=== PATIENT | female | born 1985 | race Caucasian/White ===

== ENCOUNTER 2024-01-01 15:13 | Outpatient (AMB) | payer BC, SELFPAY ==
--- NOTE | 2024-01-01 15:19 | A.OFFPC_ITS ---
Vital Signs 01/01/24 15:23 Height 5 ft 4.37 in Weight 217 lb BMI 36.8 BP 102/50 L Blood Pressure Location Rt brachial Position Sitting Respiration 14 Pulse 84 Pulse Source Pulse Oximeter Temp 98.8 F Temp Source Temporal Artery Scan Pulse Oximetry (%) 99 Oxygen Delivery Method Room Air Intake Visit Reasons: establish Care Intake Note: New patient visit Ophthalmic Surgeon Required: No Patient : Yes Allergies amoxicillin Allergy (Severe, Verified 01/01/24 15:34) Hives Medication List - Last Reconciled 01/01/24 by ISABELLE Velázquez aspirin 81 mg PO DAILY -jvlu fum-folic ac-om3 28-800-440 mg-mcg-mg (One Daily ) pkgs PO Tobacco use date assessed: 01/01/24 Dental Screening Dental Screen Date: 01/01/24 Did you have a dental visit in the last 12 months?: Yes Did you have a dental problem in the last 6 months where you did not have access to dental care?: No Was dental information given to patient?: Patient has dentist HPI HPI Comments History of Present Illness Details 38 y/o F with mild intermittent asthma, 27 weeks with 1st baby (girl) No surgical hx. 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 Reports no complications. Feeling quite well. Did have constipation but this is now resolved. Due date is 03/28/2024. 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 1. Little interest or pleasure in doing things: not at all 2. Feeling down, depressed, or hopeless: not at all 3. Trouble falling or staying asleep, or sleeping too much: not at all 4. Feeling tired or having little energy: not at all 5. Poor appetite or overeating: not at all 6. Feeling bad about yourself - or that you are a failure or have let yourself or your family down: not at all 7. Trouble concentrating on things, such as reading the newspaper or watching television: not at all 8. Moving or speaking so slowly that other people could have noticed. Or the opposite - being so fidgety or restless that you have been moving around a lot more than usual: not at all 9. Thoughts that you would be better off or of hurting yourself in some way: not at all Total score: 0 Depression Screening Interpretation: Negative Depression Screening Done: Yes [id number] - PHQ-9 Billing: Yes Source: Developed by Drs. Facundo Bazzi, Malu Byers, Golden Vásquez and colleagues, with an educational cristina from [employer]. Thrive Questionnaire Date Thrive assessed: 01/01/24 I am a: Patient What is your living situation today?: I have a steady place to live Within the past 12 months, did the food you bought not last and you didn't have the money to get more?: Never true Within the past 12 months, did you worry whether your food would run out before you got money to buy more?: Never true Do you have trouble paying for medicines?: No Do you have trouble getting transportation to medical appointments?: No Do you have trouble paying your heating and electricity bill?: No Do you have trouble taking care of your child, family member or friend?: No Do you have trouble with day-to-day activities such as bathing, preparing meals, shopping, managing finances, etc.?: No Are you currently unemployed and looking for a job?: No Are you interested in more education?: No Please select the resources that you would like help with: None Currently or been in a relationship where the following occur: no concerns reported THRIVE Score: 0 AUDIT C Alcohol Use Questionnaire (AUDIT-C) 1. How often do you have a drink containing alcohol?: Never 3. How often do you have six or more drinks on one occasion?: Never Total Score: 0 Score Reviewed/Action Taken: Yes ZARI-7 AMB Questionnaire ZARI-7 Date ZARI - 7 assessed: 01/01/24 Feeling nervous, anxious, or on edge: 0 = Not at all Not being able to stop or control worryin = Not at all Worrying too much about different things: 0 = Not at all Trouble relaxin = Not at all Being so restless that it is hard to sit still: 0 = Not at all Becoming easily annoyed or irritable: 0 = Not at all Feeling afraid as if something awful might happen: 0 = Not at all Total ZARI-7 score (0-4 normal; 5-9 mild; 10-14 moderate; 15-21 severe): 0 Source: Developed by Drs. Facundo Bazzi, Malu Byers, Golden Vásquez and colleagues, with an educational cristina from [employer]. ZARI-7 Assessment Billing ZARI-7 Assessment Tool: ZARI-7 Assessment 86845 ACT Questionnaire In the past 4 weeks, how much of the time did your asthma keep you from getting as much done at work, school or at home?: None of the time During the past 4 weeks, how often have you had shortness of breath?: 1-2 times a week (Once in the past 4 weeks) During the past 4 weeks, how often did your asthma symptoms wake you up at night or earlier than usual in the morning?: Not at all During the past 4 weeks, how often have you had to use your rescue inhaler or nebulizer medication?: Not at all How would you rate your asthma control during the past 4 weeks?: Somewhat co ntrolled ACT Interpretation: Positive Score: 22 Review of Systems Const Details: Constitutional: Denies fever. Skin: Denies rash. Eye: Denies eye pain. ENMT: Denies sore throat and nasal congestion. Respiratory: Denies shortness of breath and cough. Gastrointestinal: Denies nausea, vomiting or abdominal pain. Cardiovascular: Denies chest pain and syncope. Genitourinary: Denies dysuria. Musculoskeletal: Denies back pain and extremity pain. Neurologic: Denies headaches, confusion, and weakness. Psychiatric: Denies suicidal thoughts and substance abuse. Allergy/ Immunologic: Denies impaired immunity. Physical exam (Primary Care) Vital Signs: Last Vital Signs Temp 98.8 F 01/01/24 15:23 Pulse 84 01/01/24 15:23 Resp 14 01/01/24 15:23 BP 102/50 L 01/01/24 15:23 Pulse Ox 99 01/01/24 15:23 Oxygen Delivery Method Room Air 01/01/24 15:23 BMI result Body Mass Index 36.8 Tobacco/Smoking Status: Tobacco use Status Tobacco use date assessed 01/01/24 01/01/24 15:26 Patient Tobacco Use Status Never used Tobacco 01/01/24 15:34 e-Cigarette/Vaping Use Never Used 01/01/24 15:27 PHQ-9: PHQ-9 Score PHQ-9: Total score 0 01/01/24 15:34 Depression Screening Interpretation: Negative Thrive Assessment: Date of Thrive Assessment Date Thrive assessed 01/01/24 01/01/24 15:32 Currently or been in a relationship where the following occur: no concerns reported Const Other: General: Well developed, well nourished, in no acute distress. Appears stated age. Head: Normocephalic, atraumatic. Eyes: Pupils are equal, round and reactive to light and accommodation. Conjunctivae are clear. Vision grossly normal. Ears: TMs clear AU, EACS WNL Nose: Patent, without discharge. Mouth: There are no ulcers or lesions noted. No inflammation, no post nasal drip, no plaques nor exudates. Neck: Supple, no adenopathy or thyromegaly. Lungs: Clear to auscultation bilaterally. No rales, rhonchi or wheeze noted. Good air flow in all lechuga. Heart: Regular rate and rhythm. No murmurs, click, rubs or gallops are noted. Abdomen: Bowel sounds present in all quadrants. The abdomen is soft, nontender, with no masses or organomegaly noted. No hernias are noted. Gravid abdomen Musculoskeletal: Joints are nontender, without swelling, redness, or effusions. Range of motion is observed to be normal. Pulses: Peripheral pulses are equal and palpable bilaterally. Extremities: No clubbing, cyanosis nor edema is noted. Neurologic: Gait and station normal. Cranial Nerves 2-12 intact. Motor strength grossly symmetrical and intact. No sensory loss. Balance normal. Skin: No rashes, ulcers, or lesions noted. Turgor is good. Skin color is good. Hair and nails are without abnormalities. Psych: Normal eye contact, affect and mood appropriate, and normal interactions. Patient is alert and appropriate to context. Assessment and Plan Assessment & Plan (1) Encounter for general adult medical examination without abnormal findings: Code(s): Z00.00 - Encounter for general adult medical examination without abnormal findings (2) : Code(s): Z34.90 - Encounter for supervision of normal , unspecified, unspecified trimester Qualifiers: Weeks of gestation: 27 weeks Qualified Code(s): Z3A.27 - 27 weeks gestation of (3) Mild intermittent asthma in adult without complication: Comment: controlled w/ maintenance inhalers Code(s): J45.20 - Mild intermittent asthma, uncomplicated Patient Instructions: Return to office in 1 year for complete physical exam. Sooner if you develop any complications. Health screenings for women You should visit your health care provider from time to time, even if you are healthy. The purpose of these visits is to: Screen for medical issues Assess your risk for future medical problems Encourage a healthy lifestyle Update vaccinations and other preventive care services Help you get to know your provider in case of an illness Information Even if you feel fine, you should still see your provider for regular checkups. These visits can help you avoid problems in the future. For example, the only way to find out if you have high blood pressure is to have it checked regularly. High blood sugar and high cholesterol levels also may not have any symptoms in the early stages. A simple blood test can check for these conditions. There are specific times when you should see your provider or receive specific health screenings. The [place] Preventive Services Task Force publishes a list of recommended screenings. Below are screening guidelines for women ages 18 to 39. BLOOD PRESSURE SCREENING Your blood pressure should be checked at least once every 3 to 5 years if: Your blood pressure is in the normal range (top number less than 120 mm Hg and bottom number less than 80 mm Hg) You don't have risk factors for high blood pressure Ask your provider if you need your blood pressure checked more often if: The top number is 120 to 129 mm Hg or the bottom number is 70 to 79 mm Hg You have diabetes, heart disease, kidney problems, are overweight, or have certain other health conditions You have a first-degree relative with high blood pressure You are Black You had high blood pressure during a If the top number is 130 mm Hg or greater or the bottom number is 80 mm Hg or greater, this is considered stage 1 hypertension. Schedule an appointment with your provider to learn how you can reduce your blood pressure. Watch for blood pressure screenings in your area. Ask your provider if you can stop in to have your blood pressure checked. BREAST CANCER SCREENING Experts do not agree about the benefits of breast self-exams in finding breast cancer or saving lives. Talk to your provider about what is best for you. A screening mammogram is not recommended for most women under age 40. Your provider may discuss and recommend mammograms, MRI scans, or ultrasounds if you have an increased risk for breast cancer, such as: A mother or sister who had breast cancer at a young age (most often starting screening earlier than the age the close relative was diagnosed) You carry a high-risk genetic marker CERVICAL CANCER SCREENING Cervical cancer screening should start at age 21 years unless your provider advises otherwise. After the first test: Women ages 21 through 29 should have a Pap test every 3 years. Exoprts do not agree on whether HPV testing is recommended for this age group. Women ages 30 through 65 should be screened with either a Pap test every 3 years or the HPV test every 5 years or both tests every 5 years (called cotesting ). Women who have been treated for precancer (cervical dysplasia) should continue to have Pap tests for 20 years after treatment or until age 65, whichever is longer. If you have had your uterus and cervix removed (total hysterectomy), and you have not been diagnosed with cervical cancer or precancer (high grade cervical neoplasia), you do not need cervical cancer screening. CHOLESTEROL SCREENING Cholesterol screening should begin at: Age 45 for women with no known risk factors for coronary heart disease Age 20 for women with known risk factors for coronary heart disease Repeat cholesterol screening should take place: Every 5 years for women with normal cholesterol levels More often if changes occur in lifestyle (including weight gain and diet) More often if you have diabetes, heart disease, kidney problems, or certain other conditions DIABETES SCREENING You should be screened for diabetes starting at age 35 and then repeated every 3 years if you have no risk factors for diabetes. Screening may need to start earlier and be repeated more often if you have other risk factors for diabetes, such as: You have a first degree relative with diabetes. You are overweight or have obesity. You have high blood pressure, prediabetes, or a history of heart disease. Screening for diabetes should be done if you are planning to become and you are overweight and have other risk factors such as high blood pressure. DENTAL EXAM Go to the dentist once or twice every year for an exam and cleaning. Your dentist will evaluate if you need more frequent visits. EYE EXAM Have an eye exam every 5 to 10 years before age 40. If you have vision problems, have an eye exam every 2 years or more often if recommended by your provider. You should have an eye exam that includes an examination of your retina (back of your eye) at least every year if you have diabetes. IMMUNIZATIONS Commonly needed vaccines include: Flu shot: get one every year. COVID-19 vaccine: ask your provider what is best for you. Tetanus-diphtheria and acellular pertussis (Tdap) vaccine: have one at or after age 19 as one of your tetanus-diphtheria vaccines if you did not receive it as an adolescent. Tetanus-diphtheria: have a booster (or Tdap) every 10 years. Varicella vaccine: receive 2 doses if you never had chickenpox or the varicella vaccine. Hepatitis B vaccine: receive 2, 3, or 4 doses, depending on your exact circumstances. Measles, mumps, and rubella (MMR) vaccine: receive 1 to 2 doses if you are not already immune to MMR. Your provider can tell you if you are immune. Ask your provider about the human papillomavirus (HPV) vaccine if: You have not received the HPV vaccine in the past You have not completed the full vaccine series (you should catch up on this shot) Ask your provider if you should receive other immunizations if you have certain health problems that increase your risk for some diseases such as pneumonia. INFECTIOUS DISEASE SCREENING Women who are sexually active should be screened for chlamydia and gonorrhea up until age 25. Women 25 years and older should be screened for chlamydia and gonorrhea if at high risk. Screening for hepatitis C: All adults ages 18 to 79 should get a one-time test for hepatitis C. people should be screened at every . Screening for human immunodeficiency virus (HIV): All people ages 15 to 65 should get a one-time test for HIV. Depending on your lifestyle and medical history, you may also need to be screened for infections such as syphilis and HIV, as well as other infections. PHYSICAL EXAM All adults should visit their provider from time to time, even if they are healthy. The purpose of these visits is to: Screen for disease Assess your risk of future medical problems Encourage a healthy lifestyle Update your vaccinations and other preventive care services Maintain a relationship with a provider in case of an illness Your height, weight, and BMI should be checked at every exam. During your exam, your provider may ask you about: Depression and anxiety Diet and exercise Alcohol and tobacco use Safety issues, such as using seat belts, smoke detectors, and intimate partner violence Your medicines and risk for interactions SKIN SELF-EXAM Your provider may check your skin for signs of skin cancer, especially if you're at high risk, such as if you: Have had skin cancer before Have close relatives with skin cancer Have a weakened immune system OTHER SCREENING Talk with your provider about colon cancer screening if you have a strong family history of colon cancer or polyps, or if you have had inflammatory bowel disease or polyps yourself. Routine bone density screening of women under 40 is not recommended. Coding Level of Care Code New Pt Prev Care 18-39yr(32945 Diagnoses Encounter for general adult medical examination without abnormal findings Z00.00 27 weeks gestation of Z3A.27 Weeks of gestation: 27 weeks Mild intermittent asthma in adult without complication J45.20 Additional Codes ZARI-7 Assessment Billing - ZARI-7 Assessment Tool: ZARI-7 Assessment 28631 ([id number])
[2024-01-01 15:23] VITALS: BP 102/50; PULSE 84; RESP 14; TEMP 37.1; O2SAT 99; BMI 36.8
== END 2024-01-01 15:49 | disposition home or self-care (01) ==
PROVIDERS: PCP Physician Assistant; Visit Provider Nurse Practitioner Family
DX: Z00.00 Encounter for general adult medical examination without abnormal findings (principal); Z3A.27 27 weeks gestation of pregnancy; J45.20 Mild intermittent asthma, uncomplicated
CPT/HCPCS: 99385

== ENCOUNTER 2024-01-08 08:00 | Outpatient (AMB) | payer BC, SELFPAY ==
--- NOTE | 2024-01-08 08:05 | MHC.OFFWIV ---
Intake Vital Signs 01/08/24 08:11 Height 5 ft 4.37 in Weight 218 lb 6 oz BMI 37.1 BP 134/62 Blood Pressure Location Rt brachial Position Sitting Pulse 84 Pulse Source Pulse Oximeter Temp 98.5 F Temp Source Oral Pulse Oximetry (%) 98 Oxygen Delivery Method Room Air Intake Visit Reasons: Cold/ Flu symptoms Intake Note: Sore throat, body aches, sinus and ear pressure. Patient Tobacco Use Status: Never used Tobacco Allergies amoxicillin Allergy (Severe, Verified 01/08/24 08:16) Hives Medication List - Last Reconciled 01/08/24 by ISABELLE Velázquez aspirin 81 mg PO DAILY [id number] fum-folic ac-om3 28-800-440 mg-mcg-mg (One Daily ) pkgs PO Do you need a note to return to daycare/school/sports/work: Yes Return to daycare/school/sports/work/other note: work HPI HPI Comments History of Present Illness Details 38 y/o F with mild intermittent asthma, currently Here today for acute URI sx: Sx started yesterday while on flight home Sudden onset of sore throat Then this AM around 12 awoke w/ firerey sore throat, sinus pain, painful swallowing, body aches, bilat ears hurt, + sinus drainage , + cough denies fever no known sick exposures No at home treatments PFSH Medical History (Updated 01/08/24 @ 10:21 by ISABELLE Velázquez) Asthma Family History (Updated 01/01/24 @ 15:43 by Effie Agee CMA) Father Liver cancer Paternal Grandfather HTN (hypertension) Paternal Grandfather Hypercholesteremia Social History (Updated 01/01/24 @ 15:27 by Effie Agee CMA) Housing: House Patient Tobacco Use Status: Never used Tobacco e-Cigarette/Vaping Use: Never Used service: No Current occupational status: employed 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 Current occupational exposures/hazards: No Cognitive needs: No Hearing needs: No Vision needs: Yes Review of Systems Const All systems reviewed & are unremarkable except as noted in HPI and below Physical Exam Vital Signs: Last Vital Signs Temp 98.5 F 01/08/24 08:11 Pulse 84 01/08/24 08:11 BP 134/62 01/08/24 08:11 Pulse Ox 98 06/10/24 08:11 Oxygen Delivery Method Room Air 01/08/24 08:11 BMI result Body Mass Index 37.1 Const Other: Awake alert NAD Sclera and conjunctiva clear bilat Nares scant drainage bilat L>R, turbinates within normal limits, Left frontal sinus tenderness with palpation bilat TM intact and clear bilat MMM, pharynx mild erythema, no exudate, managing secretions RRR LS CTAB Results AMB Rapid Strep AMB Rapid Strep Negative Last Edit by KWADWO Velázquez- on 01/08/24 10:26 Assessment & Plan Assessment & Plan (1) Acute upper respiratory infection, unspecified: Code(s): J06.9 - Acute upper respiratory infection, unspecified Plan: . This note is constructed using voice recognition software. While every effort has been made to ensure accuracy in information technology security analyst, still errors may have been included Sometimes, these errors may affect the content or meaning of the given sentence . Total time spent caring for the patient today was 30 minutes. This includes time spent before the visit reviewing the chart, time spent during the visit, and time spent after the visit on documentation Orders: Orders AMB Rapid Strep Screen Today Z13.9 - Encounter for screening, unspecified Patient Instructions: Negative rapid strep today. Advised the patient that this may be a false negative given the onset of symptoms was yesterday. Offered and declined a viral swab. [place] decision-making for a watch and wait approach. Should her symptoms worsen recommend a follow up. Otherwise supportive care to include Tylenol, proper hydration and rest. Out of work note given with return on Monday if feeling better. Coding Level of Care Code Est Pt Level 4 (41889) Diagnoses Acute upper respiratory infection, unspecified J06.9
[2024-01-08 08:11] VITALS: BP 134/62; PULSE 84; TEMP 36.9; O2SAT 98; BMI 37.1
== END 2024-01-08 09:00 | disposition home or self-care (01) ==
PROVIDERS: PCP Nurse Practitioner Family; Visit Provider Nurse Practitioner Family
DX: J02.9 Acute pharyngitis, unspecified (principal); J06.9 Acute upper respiratory infection, unspecified
CPT/HCPCS: 87880; 99214

== ENCOUNTER 2024-06-21 11:26 | Outpatient (AMB) | payer BC, SELFPAY ==
--- NOTE | 2024-06-21 11:31 | MHC.PC.OV ---
Vital Signs 06/21/24 11:34 Height 5 ft 4.37 in Weight 218 lb 8 oz BMI 37.1 BP 94/66 Blood Pressure Location Rt brachial Position Sitting Pulse 80 Pulse Source Pulse Oximeter Pulse Oximetry (%) 97 Oxygen Delivery Method Room Air Intake Visit Reasons: Intake Note: Three months post Authorization Representative Required: No Allergies amoxicillin Allergy (Severe, Verified 06/21/24 12:00) Hives Medication List - Last Reconciled 06/21/24 by Marce Rodriguez [facility]- COVID-19 antigen test (COVID-19 At-Home Test kit) As directed evening primrose oil mg PO -hmtq fum-folic ac-om3 28-800-440 mg-mcg-mg (One Daily ) pkgs PO [torbangun ,] Tobacco use date assessed: 01/01/24 Dental Screening Dental Screen Date: 01/01/24 HPI HPI Comments History of Present Illness Details The patient is a 38-year-old female presenting with anxiety and difficulties with . She delivered her child vaginally on March 22, after a prolonged labor of approximately 27 hours, requiring augmented prolactin levels. During the first two to three weeks , the patient experienced significant emotional distress, which gradually improved. However, she reports being easily agitated and fatigued. Despite receiving 7-8 hours of sleep at night, the patient feels excessively tired. Her agitation has been impacting her relationship with her . At her six-week visit, she reported feeling well and ceased follow-up with her drafting supervisor until her annual visit. She also notes overeating, which she attributes to nervousness. The patient feels confined to her house due to activities related to infant care such as pumping and feeding. She expresses concerns about insufficient milk production despite consulting a plant technical specialist and attempting various interventions, including supplements and diet changes to increase . The patient mentions experiencing intermittent feelings of inadequacy and worthlessness but denies any suicidal ideation or thoughts of harming her . She has a support system consisting of her and mother. She has a history of adverse reactions to SSRIs, including Lexapro and Zoloft, which she ceased due to intolerable side effects. Recently, she started seeing a therapist with whom she has an upcoming appointment. The patient is amenable to undergoing blood work to rule out underlying conditions possibly contributing to her symptoms. 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 - Feels confined to home due to care responsibilities and lacks local family support. - Expresses feelings of social isolation and distress due to inability to engage socially outside the home. - Describes a constrained diet, characterized by quick and convenient meals rather than balanced nutrition. - Engages with online support groups for new mothers. Physical Exam General: Awake, alert. No apparent distress Eyes: Sclera and conjunctiva clear bilaterally Cardiovascular: Regular rate and rhythm Respiratory: Clear to auscultation bilaterally Psych: Mood flat, good eye contact, future oriented Plan - Anxiety: Continue current support through therapy. Discussed potential for medication upon patient agreement if anxiety becomes more severe or unmanageable. Obtain laboratory tests to rule out underlying medical conditions contributing to anxiety. - Difficulties with : Follow up with client relationship consultant and reevaluate current strategies. Obtain hormone levels and assess for nutritional deficits that might impact . Continue supplementing with formula as needed. Patient was informed and verbally consented to the use of an ambient scribe for clinic note documentation during this visit. Discussion Notes I discussed with the patient the potential causes and management strategies for anxiety. We considered her previous adverse reactions to SSRIs, emphasizing that medication remains an option if needed, and acknowledged the seriousness of anxiety that can manifest beyond depression into isolation. Follow-up includes lab work to rule out any underlying conditions and scheduled closely monitored visits to reassess her condition. For difficulties, I reiterated the importance of consulting a plant technical specialist. We talked about the timing and limitations of hormonal assessments but agreed these could inform further interventions. I emphasized that supplementing with formula is acceptable, reassuring her about its adequacy for growth and development. I advised the patient to continue using her support systems and to notify me of changes in her symptoms or if her condition worsens. Patient Instructions - Proceed with lab work today and follow up with results. - Continue sessions with the therapist. - Consult with the plant technical specialist as scheduled. - Consume a balanced diet and maintain vitamin intake. - Monitor feelings and behaviors; notify for any significant changes. - Schedule follow-up appointment in 3 weeks to f/u, or sooner if needed. CC results to Dr Ellis SHERIFFS OFFICER for FYI Total time spent caring for the patient today was 30 minutes. This includes time spent before the visit reviewing the chart, time spent during the visit, and time spent after the visit on documentation [facility] Medical History (Updated 06/21/24 @ 12:15 by DOMINIQUE Vel[facility]quezLOC[facility]IN [facility] Sore throat Asthma Family History (Updated 01/01/24 @ 15:43 by Effie Agee CMA) Father Liver cancer Paternal Grandfather HTN (hypertension) Paternal Grandfather Hypercholesteremia Social History (Updated 01/01/24 @ 15:27 by Effie Agee CMA) Housing: House Patient Tobacco Use Status: Never used Tobacco e-Cigarette/Vaping Use: Never Used service: No Current occupational status: employed 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 1. Little interest or pleasure in doing things: several days 2. Feeling down, depressed, or hopeless: several days 3. Trouble falling or staying asleep, or sleeping too much: not at all 4. Feeling tired or having little energy: nearly every day 5. Poor appetite or overeating: more than half the days 6. Feeling bad about yourself - or that you are a failure or have let yourself or your family down: more than half the days 7. Trouble concentrating on things, such as reading the newspaper or watching television: several days 8. Moving or speaking so slowly that other people could have noticed. Or the opposite - being so fidgety or restless that you have been moving around a lot more than usual: not at all 9. Thoughts that you would be better off or of hurting yourself in some way: not at all Total score: 10 Source: Developed by Drs. Facundo Bazzi, Malu Byers, Golden Vásquez and colleagues, with an educational cristina from [employer]. Thrive Questionnaire Date Thrive assessed: 01/01/24 I am a: Patient What is your living situation today?: I have a steady place to live Within the past 12 months, did the food you bought not last and you didn't have the money to get more?: Never true Within the past 12 months, did you worry whether your food would run out before you got money to buy more?: Never true Do you have trouble paying for medicines?: No Do you have trouble getting transportation to medical appointments?: No Do you have trouble paying your heating and electricity bill?: No Do you have trouble taking care of your child, family member or friend?: No Do you have trouble with day-to-day activities such as bathing, preparing meals, shopping, managing finances, etc.?: I choose not to answer this question Are you currently unemployed and looking for a job?: No Are you interested in more education?: No Please select the resources that you would like help with: None Currently or been in a relationship where the following occur: I choose not to answer THRIVE Score: 0 AUDIT C Alcohol Use Questionnaire (AUDIT-C) 1. How often do you have a drink containing alcohol?: Never Total Score: 0 ZARI-7 AMB Questionnaire ZARI-7 Date ZARI - 7 assessed: 01/01/24 Feeling nervous, anxious, or on edge: 2 = More than half the days Not being able to stop or control worryin = Several days Worrying too much about different things: 0 = Not at all Trouble relaxin = More than half the days Being so restless that it is hard to sit still: 0 = Not at all Becoming easily annoyed or irritable: 3 = Nearly every day Feeling afraid as if something awful might happen: 1 = Several days Total ZARI-7 score (0-4 normal; 5-9 mild; 10-14 moderate; 15-21 severe): 9 Source: Developed by Drs. Facundo Bazzi, Malu Byers, Golden Vásquez and colleagues, with an educational cristina from [employer]. Physical exam (Primary Care) Vital Signs: Last Vital Signs Pulse 80 06/21/24 11:34 BP 94/66 06/21/24 11:34 Pulse Ox 97 06/21/24 11:34 Oxygen Delivery Method Room Air 06/21/24 11:34 BMI result Body Mass Index 37.1 Tobacco/Smoking Status: Tobacco use Status Tobacco use date assessed 01/01/24 06/21/24 11:37 Patient Tobacco Use Status Never used Tobacco 06/21/24 11:37 e-Cigarette/Vaping Use Never Used 06/21/24 11:37 PHQ-9: PHQ-9 Score PHQ-9: Total score 10 06/21/24 12:05 Thrive Assessment: Date of Thrive Assessment Date Thrive assessed 01/01/24 06/21/24 11:37 Currently or been in a relationship where the following occur: I choose not to answer Coding Level of Care Code Est Pt Level 4 (62248) Complex EM visit Add On G2211 Diagnoses anxiety O99.345; F41.8 Breast feeding status of mother Z39.1 Influenza vaccination declined Z28.21 Assessment & Plan Assessment & Plan (1) anxiety: Code(s): O99.345 - Other mental disorders complicating the puerperium; F41.8 - Other specified anxiety disorders Category: Medical (2) Breast feeding status of mother: Code(s): Z39.1 - Encounter for care and examination of lactating mother Category: Medical (3) Influenza vaccination declined: Code(s): Z28.21 - Immunization not carried out because of patient refusal Category: Medical Plan . Orders: Orders Complete Blood Count no Diff Today F41.8 - Other specified anxiety disorders, O99.345 - Other mental disorders complicating the puerperium, Z39.1 - Encounter for care and examination of lactating mother IRON PROFILE Today F41.8 - Other specified anxiety disorders, O99.345 - Other mental disorders complicating the puerperium, Z39.1 - Encounter for care and examination of lactating mother Progesterone Today F41.8 - Other specified anxiety disorders, O99.345 - Other mental disorders complicating the puerperium, Z39.1 - Encounter for care and examination of lactating mother DHEA Sulfate Today F41.8 - Other specified anxiety disorders, O99.345 - Other mental disorders complicating the puerperium, Z39.1 - Encounter for care and examination of lactating mother Testosterone, Total Today F41.8 - Other specified anxiety disorders, O99.345 - Other mental disorders complicating the puerperium, Z39.1 - Encounter for care and examination of lactating mother Estrogen Today F41.8 - Other specified anxiety disorders, O99.345 - Other mental disorders complicating the puerperium, Z39.1 - Encounter for care and examination of lactating mother TSH reflex Free T4 Today F41.8 - Other specified anxiety disorders, O99.345 - Other mental disorders complicating the puerperium, Z39.1 - Encounter for care and examination of lactating mother Vitamin B12 and Folate Today F41.8 - Other specified anxiety disorders, O99.345 - Other mental disorders complicating the puerperium, Z39.1 - Encounter for care and examination of lactating mother HCG Quantitative Today F41.8 - Other specified anxiety disorders, O99.345 - Other mental disorders complicating the puerperium, Z39.1 - Encounter for care and examination of lactating mother Patient Instructions: Crisis Hotlines Suicide prevention, domestic violence, and other crisis hotlines for youth, young adults, and their friends and families. [facility] Healthline: The [facility] Saf[facility] helps youth who have run away, are thinking about running away, or who already ran away but are ready to come home. Parents and guardians can also contact the hotline if they are worried about their child running away or if their child has already left home. The hotline is available 24 hours a day, seven days a week. Youth, parents, and guardians can also use the online chat feature on the [facility]'s website to ask for help and get support, [place] [address]. [facility] National Suicide Prevention Lifeline: The National Suicide Prevention Lifeline is a network of local crisis centers that are available 20/02 to provide support for youth and adults who are in any kind of emotional crisis. In addition to the main hotline number listed above, there are several other numbers to call depending on your needs: Tu[place]uan Language: Deaf and Hard of Hearin1-724.587.3902 Veterans: Disaster Distress: Anyone can also use their online chat feature on their website. Pax Suicide Prevention Lifeline [facility] Helpline: The [facility] Helpline is available to anyone in [place] who is need of emotional support. Anyone can call or text the helpline to receive help from specially trained volunteers. [place] high school and college students can also get online support through the IMHear_ program. For high school students, volunteers ages 15-18 are available Monday- from 6-9PM. For college students, IMHear_ is available Monday-Monday from 5-9PM. The Kris Project - The Kris Project is a 20/02 crisis intervention and suicide prevention hotline for LGBTQ youth. Youth can also text Kris to for support, or use the online chat feature on the Kris Project's website. TrevorText is available Monday-Monday between 3-10PM. TrevorChat is available seven days a week between 3-10PM. SafeLink: SafeLink is for anyone who is being affected by domestic violence or dating violence. Volunteers at [employer] renal speak Palestinian and Tu[place]uan, and [employer] also has a service that can provide translation in more than 130 languages. TTY:
[2024-06-21 11:34] VITALS: BP 94/66; PULSE 80; O2SAT 97; BMI 37.1
== END 2024-06-21 12:19 | disposition home or self-care (01) ==
PROVIDERS: PCP Nurse Practitioner Family; Visit Provider Nurse Practitioner Family
DX: F41.8 Other specified anxiety disorders (principal); O99.345 Other mental disorders complicating the puerperium; Z39.1 Encounter for care and examination of lactating mother; Z28.21 Immunization not carried out because of patient refusal

== ENCOUNTER → 2024-06-21 11:26 | Outpatient (BNVA) | payer BC, SELFPAY | PROVIDERS: PCP Nurse Practitioner Family; Visit Provider Nurse Practitioner Family ==

== ENCOUNTER 2024-06-21 12:55 | Outpatient (REF) | payer BC, SELFPAY ==
[2024-06-21 14:18] LABS: Hematocrit 44.8 % (37.0-47.0); Hemoglobin 14.6 g/dl (12.0-16.0); Mean Corpuscular HGB Conc 32.6 g/dl (31.0-35.0); Mean Corpuscular Volume 85.8 fL (80.0-98.0); Mean Platelet Volume 8.8 fL (9.4-12.3); Platelet Count 375 X10*3/uL (160-400); Red Blood Count 5.22 X10*6/uL (4.20-5.50); Red Cell Distribution Width 13.8 % (11.0-16.0); White Blood Count 7.4 X10*3/uL (4.8-10.8)
[2024-06-21 14:54] LABS: Iron 104 mcg/dL (30-160); Percent Iron Saturation 27 % (15-50); Total Iron Binding Capacity 381 mcg/dL (228-428); Unsaturated Iron Binding 277 ug/dL
[2024-06-21 15:13] LABS: HCG Quantitative < 2 mIU/mL; TSH reflex Free T4 0.66 uIU/mL (0.32-4.0)
[2024-06-21 15:25] LABS: Folate 17.3 ng/mL (> or = 4.0); Vitamin B12 745 pg/mL (200-900)
[2024-06-24 14:05] LABS: DHEA Sulfate 192 mcg/dL (19-237)
[2024-06-26 23:49] LABS: Estrogen 104 pg/mL
[2024-06-27 13:54] LABS: Testosterone, Total 19 ng/dL (2-45)
[2024-07-05 13:45] LABS: Progesterone <0.1 ng/mL
== END 2024-06-21 12:56 | disposition home or self-care (01) ==
LOC: HO.WFDLDS 12:55
PROVIDERS: Visit Provider Nurse Practitioner Family
DX: O99.345 Other mental disorders complicating the puerperium (principal); F41.8 Other specified anxiety disorders; Z39.1 Encounter for care and examination of lactating mother; Z28.21 Immunization not carried out because of patient refusal
CPT/HCPCS: 36415; 82607; 82627; 82672; 82746; 83540; 84144; 84403; 84443; 84702; 85027

== ENCOUNTER 2024-07-05 10:20 | Outpatient (AMB) | payer BC, SELFPAY ==
--- NOTE | 2024-07-05 10:21 | A.OFFPC_ITS ---
Vital Signs 07/05/24 10:24 Height 5 ft 5 in Weight 219 lb BMI 36.4 BP 105/52 L Blood Pressure Location Rt brachial Position Sitting Respiration 12 Pulse 71 Pulse Source Pulse Oximeter Temp 96.3 F L Temp Source Skin Pulse Oximetry (%) 98 Oxygen Delivery Method Room Air Intake Visit Reasons: 2-3 weeks 30 min fu PPD Intake Note: follow up Business Services Specialist Sales Required: No Allergies amoxicillin Allergy (Severe, Verified 07/05/24 10:36) Hives Medication List - Last Reconciled 07/05/24 by Marce Rodriguez, [employer]- COVID-19 antigen test (COVID-19 At-Home Test kit) As directed evening primrose oil mg PO [id number] fum-folic ac-om3 28-800-440 mg-mcg-mg (One Daily ) pkgs PO [torbangun ,] Tobacco use date assessed: 01/01/24 Dental Screening Dental Screen Date: 01/01/24 HPI HPI Comments History of Present Illness Details The patient is a 39-year-old female presenting for close f/u - concerns. Since the last visit, she has been addressing ineffective communication with her , as identified by her counselor. This communication issue was notable for her feeling overwhelmed by household duties and experiencing difficulties in soliciting her 's help effectively. The patient has experienced improvements by implementing strategies suggested in the readings from a [employer]ON[employer] Talk. Additionally, she has started treadmill exercises, which has had a positive effect on her physical activity levels. Her laboratory results, except for progesterone, returned normal, and she has decided to continue pumping breast milk despite previous intentions to stop due to associated difficulties. Regarding pharmacological interventions, the patient has a history of poor tolerance to SSRI and has opted to avoid them at present. Her concerns of guilt have largely been replaced by frustration, and her sleep, nutrition, and ability to fulfill day-to-day responsibilities have shown improvements. - Continued exercise with the use of a t readmill. - Addressing communication challenges to improve familial support. - Nutritional adjustments, such as meal preparation for ease during busy periods. - Ongoing with continued use o f breast milk pumping. - Regular gynecological follow-ups and c onsideration of future family planning. Social History - Family: with a child. Receives support from and father. - Activity: Describes herself as a homeb pavel but makes efforts to engage in external activities. - Nutrition: Prefers [id number] juan a ls and uses leftovers; working on improving dietary habits. - Family Planning: Discussion regarding desire for future within six months. Review of Systems - Psychological: Denies any thoughts of self-harm, harm to others, or harm to her child. - Sleep: Reports adequate sleep. - Gastrointestinal: Reports improved eat ing habits; focuses on manageable meal options. Physical Exam - General- Stable vital signs, Awake, al ert. No apparent distress Eyes: Sclera and conjunctiva clear bilaterally Cardiovascular: Regular rate and rhythm Respiratory: Clear to auscultation bilaterally Psych: Mood flat, good eye contact, future oriented Results - Labs: Normal iron, thyroid, B12, folat e, estrogen, testosterone, DHA; negative test. Progesterone result pending. Plan - Address ineffective communication by m aintaining strategies learned from the counselor and revisiting readings if necessary. - Continue pumping breast milk to manage current practice. - Avoid pharmacological interventions gi waldo past medication intolerance unless future need arises. - Monitor emotional well-being, ensuring frustration does not increase, and support sleep and nutritional improvements. - Follow-up for pending progesterone res ults, and repeat hormone panel if necessary. - Schedule follow-up appointment in [place] h for interim review, with CPE follow-up in December, and adjust based on interim needs. - Continue vitamins in light of future planning. Patient was informed and verbally consented to the use of an ambient scribe for clinic note documentation during this visit. Discussion Notes I discussed the patient?s ongoing concerns about - management, emphasizing the normalcy of her current lab results except for pending progesterone. We explored the benefits of continued communication strategies to improve home support dynamics. I encouraged her current physical activity plan with the treadmill and reviewed her decision against medication, given past intolerance. We discussed scheduling follow-up lab work if progesterone levels are abnormal, to confirm any irregularities before intervention. For her future family planning, I advised continuing vitamins and necessary preparations for conception in approximately six months. The patient agreed with the proposed plan and expressed relief over the positive changes in her health management. Patient Instructions - Continue using communication strategie s learned from the counselor. - Maintain the exercise regimen on the readmill as weather precludes outdoor activities. - Monitor emotional health and address o ngoing feelings of frustration. - Continue pumping breast milk, especial ly if past cessation caused issues. - Follow up on pending progesterone resu lts and report any significant changes in health. - Keep taking vitamins in line with future family planning efforts. - Schedule and attend follow-up appointm ents as planned or adjust based on immediate needs. - Discuss any future planning concerns with an OB for additional gu idance. This note is constructed using voice recognition software. While every effort has been made to ensure accuracy in [place] guide, still errors may have been included Sometimes, these errors may affect the content or meaning of the given sentence . Total time spent caring for the patient today was 30 minutes. This includes time spent before the visit reviewing the chart, time spent during the visit, and time spent after the visit on documentation [facility] Medical History (Updated 07/05/24 @ 10:54 by Marce Rodriguez [facility]) Asthma Family History (Updated 01/01/24 @ 15:43 by Effie Agee [facility]) Father Liver cancer Paternal Grandfather HTN (hypertension) Paternal Grandfather Hypercholesteremia Social History (Updated 01/01/24 @ 15:27 by Effie Agee [facility]) Housing: House Patient Tobacco Use Status: Never used Tobacco e-Cigarette/Vaping Use: Never Used service: No Current occupational status: employed 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 14794 - PHQ-9 Billing: Patient declined-do not bill Source: Developed by Drs. Facundo Bazzi, Malu Byers, Golden Vásquez and colleagues, with an educational cristina from [employer]. Thrive Questionnaire Date Thrive assessed: 07/05/24 I am a: Patient What is your living situation today?: I have a steady place to live Within the past 12 months, did the food you bought not last and you didn't have the money to get more?: Never true Within the past 12 months, did you worry whether your food would run out before you got money to buy more?: Never true Do you have trouble paying for medicines?: No Do you have trouble getting transportation to medical appointments?: No Do you have trouble paying your heating and electricity bill?: No Do you have trouble taking care of your child, family member or friend?: No Do you have trouble with day-to-day activities such as bathing, preparing meals, shopping, managing finances, etc.?: I choose not to answer this question Are you currently unemployed and looking for a job?: No Are you interested in more education?: No Please select the resources that you would like help with: None Currently or been in a relationship where the following occur: I choose not to answer THRIVE Score: 0 ZARI-7 AMB Questionnaire ZARI-7 Date ZARI - 7 assessed: 01/01/24 Source: Developed by Drs. Facundo Bazzi, Malu Byers, Golden Vásquez and colleagues, with an educational cristina from [employer]. Physical exam (Primary Care) Vital Signs: Last Vital Signs Temp 96.3 F L 07/05/24 10:24 Pulse 71 07/05/24 10:24 Resp 12 07/05/24 10:24 BP 105/52 L 07/05/24 10:24 Pulse Ox 98 07/05/24 10:24 Oxygen Delivery Method Room Air 07/05/24 10:24 BMI result Body Mass Index 36.4 Tobacco/Smoking Status: Tobacco use Status Tobacco use date assessed 01/01/24 07/05/24 10:26 Patient Tobacco Use Status Never used Tobacco 07/05/24 10:26 e-Cigarette/Vaping Use Never Used 07/05/24 10:26 Thrive Assessment: Date of Thrive Assessment Date Thrive assessed 07/05/24 07/05/24 10:26 Currently or been in a relationship where the following occur: I choose not to answer Coding Level of Care Code Est Pt Level 4 (42043) Complex EM visit Add On G2211 Diagnoses anxiety O99.345; F41.8 Breast feeding status of mother Z39.1 Assessment & Plan Assessment & Plan (1) anxiety: Code(s): O99.345 - Other mental disorders complicating the puerperium; F41.8 - Other specified anxiety disorders Category: Medical (2) Breast feeding status of mother: Code(s): Z39.1 - Encounter for care and examination of lactating mother Category: Medical Plan .
[2024-07-05 10:24] VITALS: BP 105/52; PULSE 71; RESP 12; TEMP 35.7; O2SAT 98; BMI 36.4
== END 2024-07-05 10:51 | disposition home or self-care (01) ==
PROVIDERS: PCP Nurse Practitioner Family; Visit Provider Nurse Practitioner Family
DX: F41.8 Other specified anxiety disorders (principal); O99.345 Other mental disorders complicating the puerperium; Z39.1 Encounter for care and examination of lactating mother

== ENCOUNTER → 2024-07-05 10:20 | Outpatient (BNVA) | payer BC, SELFPAY | PROVIDERS: PCP Nurse Practitioner Family; Visit Provider Nurse Practitioner Family ==

== ENCOUNTER 2024-10-30 12:47 | Outpatient (AMB) | payer BC, SELFPAY ==
--- NOTE | 2024-10-30 12:49 | A.OFFPC_ITS ---
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 Is last menstrual period known: Yes Last menstrual period: 10/28/24 Post menopausal: No Patient : No Allergies amoxicillin Allergy (Severe, Verified 10/30/24 13:01) Hives Medication List - Last Reconciled 10/30/24 by Marce Rodriguez, ROLL HAND- ashwagandha extract 600 mg PO DAILY COVID-19 antigen test (COVID-19 At-Home Test kit) As directed Lactobac no.51-Bifidobact no.4 50 billion cell (up4 Probiotics Ultra) caps PO Tobacco use date assessed: 10/30/24 Dental Screening Dental Screen Date: 10/30/24 Did you have a dental visit in the last 12 months?: Yes Did you have a dental problem in the last 6 months where you did not have access to dental care?: No Was dental information given to patient?: Patient has dentist HPI HPI Comments History of Present Illness Details History - The patient is a 39-year-old female pr esenting with sore throat and difficulty swallowing. - Symptoms began yesterday and have wors ened, with hoarseness and severe pain on swallowing. - She reports a headache localized to th e left side near the eye and body aches, with no fever, nausea, or vomiting. - She attempted ibuprofen for symptom re lief, which reduced body aches but not the sore throat. - The patient has a known allergy to brian xicillin, causing hives, vomiting, and diarrhea Has taken and tolerated cephalosporins Physical Exam General: Awake, alert. No apparent distress Eyes: Sclera and conjunctiva clear bilaterally Nose: Nares patent, turbinates within normal limits, no sinus tenderness with palpation bilaterally Ears: Tympanic membranes intact and clear bilaterally Throat: Exudative pharyngitis, uvula midline, AC adenopathy bilat worse on the left, managing secretions Cardiovascular: blood pressure 114/55 Discussion Notes I discussed with the patient the presence of Group A Streptococcal Pharyngitis. Due to her allergy to amoxicillin, I recommended cefadroxil as it is outside the penicillin class, providing effective tonsillar penetration with lower resistance issues. I advised administering two doses within the same day to initiate quicker recovery and elaborated on the antibiotic course duration and administration instructions to minimize gastrointestinal distress. She was advised to maintain hydration and consider liquid ibuprofen for ease of swallowing during treatment. We discussed the potential to remain home from work for rest but noted that she would not be contagious after taking two doses. Instructions were also given for infection control measures, such as changing linens and her toothbrush post-antibiotic initiation. I also provided guidance on keeping contact with her [id number] daughter to a minimum over the initial 24 hours to prevent transmission. Assessment and Plan 1. Group A Streptococcal Pharyngitis: Du e to her amoxicillin allergy, cefadroxil has been prescribed, taking into account its efficacy against streptococcal infection. She is advised to complete a seven-day antibiotic course and maintain hydration with symptomatic management using ibuprofen for pain. 2. Allergy to Amoxicillin: The patient?s amoxicillin allergy, causing hives, informs the choice of cefuroxime as an effective alternative. Patient Instructions - Begin cefadroxil treatment immediately and take it twice daily for seven days. - Take ibuprofen for pain relief as need ed. - Maintain hydration; prefer fluids over solid foods if swallowing is difficult. - Limit contact with your daughter for 2 4 hours, particularly avoiding [id number] interactions. - Change bed linens and your toothbrush roughly 24 hours post-antibiotics. - Rest and if desired, take tomorrow off from work after starting the antibiotics today. Consent Patient was informed and verbally consented to the use of an ambient scribe for clinic note documentation during this visit. 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 1. Little interest or pleasure in doing things: not at all 2. Feeling down, depressed, or hopeless: not at all 3. Trouble falling or staying asleep, or sleeping too much: not at all 4. Feeling tired or having little energy: not at all 5. Poor appetite or overeating: not at all 6. Feeling bad about yourself - or that you are a failure or have let yourself or your family down: not at all 7. Trouble concentrating on things, such as reading the newspaper or watching television: not at all 8. Moving or speaking so slowly that other people could have noticed. Or the opposite - being so fidgety or restless that you have been moving around a lot more than usual: not at all 9. Thoughts that you would be better off or of hurting yourself in some way: not at all Total score: 0 Source: Developed by Drs. Facundo Bazzi, Malu Byers, Golden Vásquez and colleagues, with an educational cristina from [employer]. Thrive Questionnaire Date Thrive assessed: 07/05/24 I am a: Patient What is your living situation today?: I have a steady place to live Within the past 12 months, did the food you bought not last and you didn't have the money to get more?: Never true Within the past 12 months, did you worry whether your food would run out before you got money to buy more?: Never true Do you have trouble paying for medicines?: No Do you have trouble getting transportation to medical appointments?: No Do you have trouble paying your heating and electricity bill?: No Do you have trouble taking care of your child, family member or friend?: No Do you have trouble with day-to-day activities such as bathing, preparing meals, shopping, managing finances, etc.?: No Are you currently unemployed and looking for a job?: No Are you interested in more education?: No Please select the resources that you would like help with: None Currently or been in a relationship where the following occur: No concerns reported THRIVE Score: 0 AUDIT C Alcohol Use Questionnaire (AUDIT-C) 1. How often do you have a drink containing alcohol?: Never Total Score: 0 ZARI-7 AMB Questionnaire ZARI-7 Date ZRAI - 7 assessed: 01/01/24 Feeling nervous, anxious, or on edge: 0 = Not at all Not being able to stop or control worryin = Not at all Worrying too much about different things: 0 = Not at all Trouble relaxin = Not at all Being so restless that it is hard to sit still: 0 = Not at all Becoming easily annoyed or irritable: 0 = Not at all Feeling afraid as if something awful might happen: 0 = Not at all Total ZARI-7 score (0-4 normal; 5-9 mild; 10-14 moderate; 15-21 severe): 0 Source: Developed by Drs. Facundo Bazzi, Malu Byers, Golden Vásquez and colleagues, with an educational cristina from [employer]. Physical exam (Primary Care) Vital Signs: Last Vital Signs Temp 98.5 F 10/30/24 13:03 Pulse 87 10/30/24 13:03 Resp 16 10/30/24 13:03 BP 114/55 L 10/30/24 13:03 Pulse Ox 98 10/30/24 13:03 Oxygen Delivery Method Room Air 10/30/24 13:03 BMI result Body Mass Index 35.8 Tobacco/Smoking Status: Tobacco use Status Tobacco use date assessed 10/30/24 10/30/24 13:05 Patient Tobacco Use Status Never used Tobacco 10/30/24 12:52 e-Cigarette/Vaping Use Never Used 10/30/24 12:52 PHQ-9: PHQ-9 Score PHQ-9: Total score 0 10/30/24 13:08 Thrive Assessment: Date of Thrive Assessment Date Thrive assessed 07/05/24 10/30/24 12:52 Currently or been in a relationship where the following occur: No concerns reported Results AMB Rapid Strep AMB Rapid Strep Negative Last Edit by Chloe Cassidy MA on 10/30/24 13:12 Results Reviewed Results Reviewed: Laboratory Last Values Strep Scn Rapid Clinic Negative 10/30/24 12:52 Coding Level of Care Code Est Pt Level 3 (17369) Complex EM visit Add On G2211 Diagnoses Strep pharyngitis J02.0 Assessment & Plan Assessment & Plan (1) Strep pharyngitis: Code(s): J02.0 - Streptococcal pharyngitis Plan . Orders: Orders AMB Rapid Strep Screen Today Z13.9 - Encounter for screening, unspecified Medications: New cefadroxil 500 mg PO BID 14 caps 0RF
[2024-10-30 13:03] VITALS: BP 114/55; PULSE 87; RESP 16; TEMP 36.9; O2SAT 98; BMI 35.8
== END 2024-10-30 13:15 | disposition home or self-care (01) ==
LOC: HO.HMCFM 12:48
PROVIDERS: PCP Nurse Practitioner Family; Visit Provider Nurse Practitioner Family
DX: J02.0 Streptococcal pharyngitis (principal); Z13.9 Encounter for screening, unspecified

== ENCOUNTER → 2024-10-30 12:47 | Outpatient (BNVA) | payer BC, SELFPAY | PROVIDERS: PCP Nurse Practitioner Family; Visit Provider Nurse Practitioner Family | DX: J02.0 Streptococcal pharyngitis (principal) | CPT/HCPCS: 87880; 96127 ==

== ENCOUNTER 2025-01-03 08:03 | Outpatient (AMB) | payer BC, SELFPAY ==
--- NOTE | 2025-01-03 08:06 | A.OFFPC_ITS ---
Vital Signs 01/03/25 08:12 Height 5 ft 5 in Weight 196 lb 8 oz BMI 32.7 BP 112/64 Blood Pressure Location Lt brachial Position Sitting Respiration 14 Pulse 90 Pulse Source Pulse Oximeter Pulse Oximetry (%) 97 Oxygen Delivery Method Room Air Intake Visit Reasons: 1 year CPE Intake Note: Physical. Started seeing lubricating machine tender, will be doing allergy testing next month. Disability Representative Required: No Allergies amoxicillin Allergy (Severe, Verified 10/30/24 13:01) Hives Medication List - Last Reconciled 01/03/25 by Marce Rodriguez, [facility]- albuterol sulfate 90 mcg/actuation 2 puffs inhalation Q4-6H PRN 30 days ashwagandha extract 600 mg PO DAILY COVID-19 antigen test (COVID-19 At-Home Test kit) As directed zuohosmpevt-ptdtjlqci-klcrgbrg 100-62.5-25 mcg (Trelegy Ellipta) 1 inh inhalation DAILY Lactobac no.51-Bifidobact no.4 50 billion cell (up4 Probiotics Ultra) caps PO tirzepatide (weight loss) (Zepbound) 5 mg subcut QWEEK Tobacco use date assessed: 01/03/25 Dental Screening Dental Screen Date: 01/03/25 Did you have a dental visit in the last 12 months?: Yes Did you have a dental problem in the last 6 months where you did not have access to dental care?: No Was dental information given to patient?: Patient has dentist HPI HPI Comments History of Present Illness Details 39 y/o F with mild intermittent asthma, anxiety, obesity, environmental allergies No surgical hx. 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 recommend FMLA Intermittent. Cont w/ trelegy and albuterol. Needs refills on Albuterol Allergies - will be getting allergy shots at [facility] Mood - no longer breast feeding, better mood. Using Ashwagandha with + effect. Back to work. Couples counseling. Zepbound for obesity. Getting from outside prescriber. Skin - no issues. Social History - Employed at [employer]. - Attending couples counseling for relat ionship maintenance. - Mother to a child currently unwell wit h a stomach bug. - Previous eye evaluations due for an up date, seeking appointments with weekend availability. Health Maintenance - Pap smear completed. - Tetanus vaccination received during pr egnancy. - Recent mammogram performed following p ost- lump evaluation, planning to continue mammograms. Review of Systems - Respiratory: Reports asthma exacerbati ons primarily in August to October. - Psychological: Denies current depressi on; reports improved mood post- , and anxiety managed with Ashwagandha. - Ophthalmologic: Reports need for updat ed vision exam. - Gastrointestinal: Denies abdominal shukri n or tenderness. Physical Exam General: Well developed, well nourished, in no acute distress. Appears stated age. Head: Normocephalic, atraumatic. Eyes: Pupils are equal, round and reactive to light and accommodation. Conjunctivae are clear. Vision grossly normal, but patient reports blurred visi on bilaterally and is seeking an eye appointment. Ears: TMs clear AU, EACS WNL. Nose: Patent, without discharge. Turbinates erythematous Neck: Supple, no adenopathy or thyromegaly. Breast: Edu on SBE. Lungs:Dim throughout, occassional cough Heart: Regular rate and rhythm. No murmurs, click, rubs or gallops are noted. Abdomen: Bowel sounds present in all quadrants. The abdomen is soft, nontender, with no masses or organomegaly noted. No hernias are noted. : Deferred. Reviewed recommendations for routine MAINTENANCE WORKER SWIMMING POOL. Pulses: Peripheral pulses are equal and palpable bilaterally. Extremities: No clubbing, cyanosis nor edema is noted. Neurologic: Gait and station normal. Cranial Nerves 2-12 intact. Motor strength grossly symmetrical and intact. No sensory loss. Balance normal. Skin: No rashes, ulcers, or lesions noted. Turgor is good. Skin color is good. Hair and nails are without abnormalities. Psych: Normal eye contact, affect and mood appropriate, and normal interactions. Patient is alert and appropriate to context. Results - Labs: Blood count and hormone panel ch ecked in May; no indication for repeat testing unless patient desires. Discussion Notes During the visit, we discussed the patient's asthma management, focusing on the challenges she faces during the seasonal changes from August to October, which exacerbate her condition due to pollen and weather. We discussed the potential preparation of intermittent FMLA as an action plan to accommodate absences posed by her asthma exacerbations. Consideration was given to the insurance coverage for ProAir versus ProClick inhalers; I will send the patient an albuterol refill as requested. We also discussed eye care referrals and the recommended follow-up for her upcoming eye examination. The patient will continue Zepbound for obesity. Suggestions were made to investigate Fredi for respiratory and immune health support pending her patient service specialist consultation. We emphasized following up with her lubricating machine tender on January 29 about allergy testing options. Finally, we talked about proactively scheduling annual wellness visits. Assessment and Plan 1. Asthma - Maintain PRN albuterol and Trelegy inh aler. - Consider intermittent FMLA for work. - Allergy consultation scheduled. 2. Obesity - Continue Zepbound treatment. 3. anxiety - Ashwagandha sustained. 4. Vision issues - Referral for ophthalmology initiated. 5. Health maintenance - Annual check-ups continued. Patient Instructions - Continue using albuterol and Trelegy i nhaler as needed. - Follow the action plan if you experien ce asthma exacerbations. - Keep taking Zepbound and Ashwagandha a s instructed. - Schedule your eye exam with the referr ed adoption coordinator. - Monitor any changes to your health and return for annual wellness visits. RTO 1 year CPE, sooner PRN Consent Patient was informed and verbally consented to the use of an ambient scribe for clinic note documentation during this visit. 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 1. Little interest or pleasure in doing things: not at all 2. Feeling down, depressed, or hopeless: not at all 3. Trouble falling or staying asleep, or sleeping too much: not at all 4. Feeling tired or having little energy: several days 5. Poor appetite or overeating: not at all 6. Feeling bad about yourself - or that you are a failure or have let yourself or your family down: not at all 7. Trouble concentrating on things, such as reading the newspaper or watching television: not at all 8. Moving or speaking so slowly that other people could have noticed. Or the opposite - being so fidgety or restless that you have been moving around a lot more than usual: not at all 9. Thoughts that you would be better off or of hurting yourself in some way: not at all Total score: 1 Depression Screening Interpretation: Negative Depression Screening Done: Yes 46283 - PHQ-9 Billing: Yes Source: Developed by Drs. Facundo Bazzi, Malu Byers, Golden Vásquez and colleagues, with an educational cristina from [employer]. Thrive Questionnaire Date Thrive assessed: 01/03/25 I am a: Patient What is your living situation today?: I have a steady place to live Within the past 12 months, did the food you bought not last and you didn't have the money to get more?: Never true Within the past 12 months, did you worry whether your food would run out before you got money to buy more?: Never true Do you have trouble paying for medicines?: No Do you have trouble getting transportation to medical appointments?: No Do you have trouble paying your heating and electricity bill?: No Do you have trouble taking care of your child, family member or friend?: No Do you have trouble with day-to-day activities such as bathing, preparing meals, shopping, managing finances, etc.?: No Are you currently unemployed and looking for a job?: No Are you interested in more education?: No Please select the resources that you would like help with: None Currently or been in a relationship where the following occur: No concerns reported THRIVE Score: 0 AUDIT C Alcohol Use Questionnaire (AUDIT-C) 1. How often do you have a drink containing alcohol?: Monthly or less 2. How many drinks containing alcohol do you have on a typical day when you are drinking?: 1 or 2 3. How often do you have six or more drinks on one occasion?: Never Total Score: 1 Score Reviewed/Action Taken: Yes ZARI-7 AMB Questionnaire ZARI-7 Date ZARI - 7 assessed: 01/03/25 Feeling nervous, anxious, or on edge: 0 = Not at all Not being able to stop or control worryin = Not at all Worrying too much about different things: 0 = Not at all Trouble relaxin = Several days Being so restless that it is hard to sit still: 0 = Not at all Becoming easily annoyed or irritable: 1 = Several days Feeling afraid as if something awful might happen: 0 = Not at all Total ZARI-7 score (0-4 normal; 5-9 mild; 10-14 moderate; 15-21 severe): 2 Source: Developed by Drs. Facundo Bazzi, Malu Byers, Golden Vásquez and colleagues, with an educational cristina from [employer]. ZARI-7 Assessment Billing ZARI-7 Assessment Tool: ZARI-7 Assessment 98629 ACT Questionnaire In the past 4 weeks, how much of the time did your asthma keep you from getting as much done at work, school or at home?: Some of the time (2 days out of the past two weeks) During the past 4 weeks, how often have you had shortness of breath?: More than once a day During the past 4 weeks, how often did your asthma symptoms wake you up at night or earlier than usual in the morning?: 4 or more nights a week During the past 4 weeks, how often have you had to use your rescue inhaler or nebulizer medication?: 2-3 times a week (symptoms two weeks ago) How would you rate your asthma control during the past 4 weeks?: Somewhat controlled ACT Interpretation: Positive ACT Branch: Follow up visit scheduled Score: 11 Physical exam (Primary Care) Vital Signs: Last Vital Signs Pulse 90 01/03/25 08:12 Resp 14 06/06/25 08:12 BP 112/64 01/03/25 08:12 Pulse Ox 97 01/03/25 08:12 Oxygen Delivery Method Room Air 01/03/25 08:12 BMI result Body Mass Index 32.7 BMI Assessment/Plan discussion: High BMI High, discussed plan: lifestyle Tobacco/Smoking Status: Tobacco use Status Tobacco use date assessed 01/03/25 01/03/25 08:08 Patient Tobacco Use Status Never used Tobacco 01/03/25 08:08 e-Cigarette/Vaping Use Never Used 01/03/25 08:08 PHQ-9: PHQ-9 Score PHQ-9: Total score 1 01/03/25 08:15 Depression Screening Interpretation: Negative Thrive Assessment: Date of Thrive Assessment Date Thrive assessed 01/03/25 01/03/25 08:15 Currently or been in a relationship where the following occur: No concerns reported Coding Level of Care Code Est Pt Prev Care 18-39y(11254) Diagnoses Encounter for general adult medical examination without abnormal findings Z00.00 Mild intermittent asthma in adult without complication J45.20 anxiety O99.345; F41.8 Blurred vision, bilateral H53.8 Obesity (BMI 30-39.9) E66.9 Healthcare maintenance Z00.00 Environmental allergies Z91.09 Additional Codes ZARI-7 Assessment Billing - ZARI-7 Assessment Tool: ZARI-7 Assessment 22007 ([id number]) PHQ-9 - 88684 - PHQ-9 Billing: Yes ([id number]) Asthma Control Questionnaire - ACT Interpretation: Positive ([id number]) Assessment & Plan Assessment & Plan (1) Encounter for general adult medical examination without abnormal findings: Onset Date: ~01/03/25 Code(s): Z00.00 - Encounter for general adult medical examination without abnormal findings Category: Medical (2) Mild intermittent asthma in adult without complication: Comment: controlled w/ maintenance inhalers Code(s): J45.20 - Mild intermittent asthma, uncomplicated Category: Medical (3) anxiety: Code(s): O99.345 - Other mental disorders complicating the puerperium; F41.8 - Other specified anxiety disorders Category: Medical (4) Blurred vision, bilateral: Code(s): H53.8 - Other visual disturbances Category: Medical (5) Obesity (BMI 30-39.9): Code(s): E66.9 - Obesity, unspecified Category: Medical (6) Healthcare maintenance: Code(s): Z00.00 - Encounter for general adult medical examination without abnormal findings Category: Medical (7) Environmental allergies: Code(s): Z91.09 - Other allergy status, other than to drugs and biological substances Category: Medical Plan . Orders: Referrals Ophthalmology Referral H53.8 - Other visual disturbances Medications: New albuterol sulfate 90 mcg/actuation 2 inhalations inhalation Q6H PRN 1 ea 1RF shortness of breath or wheezing nhgybdabafa-jwvojhydp-mmpaqlxy 100-62.5-25 mcg (Trelegy Ellipta) 1 inh inhalation DAILY 60 ea 0RF Discontinued albuterol sulfate 90 mcg/actuation Discontinued Reason: Insurance Denied 2 puffs inhalation Q4-6H 30 days PRN 8.5 grams 0RF shortness of breath or wheezing Patient Instructions: [facility] Health screenings for women You should visit your health care provider from time to time, even if you are healthy. The purpose of these visits is to: Screen for medical issues Assess your risk for future medical problems Encourage a healthy lifestyle Update vaccinations and other preventive care services Help you get to know your provider in case of an illness Information Even if you feel fine, you should still see your provider for regular checkups. These visits can help you avoid problems in the future. For example, the only way to find out if you have high blood pressure is to have it checked regularly. High blood sugar and high cholesterol levels also may not have any symptoms in the early stages. A simple blood test can check for these conditions. There are specific times when you should see your provider or receive specific health screenings. The [place] Preventive Services Task Force publishes a list of recommended screenings. Below are screening guidelines for women ages 18 to 39. BLOOD PRESSURE SCREENING Your blood pressure should be checked at least once every 3 to 5 years if: Your blood pressure is in the normal range (top number less than 120 mm Hg and bottom number less than 80 mm Hg) You don't have risk factors for high blood pressure Ask your provider if you need your blood pressure checked more often if: The top number is 120 to 129 mm Hg or the bottom number is 70 to 79 mm Hg You have diabetes, heart disease, kidney problems, are overweight, or have certain other health conditions You have a first-degree relative with high blood pressure You are Black You had high blood pressure during a If the top number is 130 mm Hg or greater or the bottom number is 80 mm Hg or greater, this is considered stage 1 hypertension. Schedule an appointment with your provider to learn how you can reduce your blood pressure. Watch for blood pressure screenings in your area. Ask your provider if you can stop in to have your blood pressure checked. BREAST CANCER SCREENING Experts do not agree about the benefits of breast self-exams in finding breast cancer or saving lives. Talk to your provider about what is best for you. A screening mammogram is not recommended for most women under age 40. Your provider may discuss and recommend mammograms, MRI scans, or ultrasounds if you have an increased risk for breast cancer, such as: A mother or sister who had breast cancer at a young age (most often starting screening earlier than the age the close relative was diagnosed) You carry a high-risk genetic marker CERVICAL CANCER SCREENING Cervical cancer screening should start at age 21 years unless your provider advises otherwise. After the first test: Women ages 21 through 29 should have a Pap test every 3 years. Exoprts do not agree on whether HPV testing is recommended for this age group. Women ages 30 through 65 should be screened with either a Pap test every 3 years or the HPV test every 5 years or both tests every 5 years (called cotesting ). Women who have been treated for precancer (cervical dysplasia) should continue to have Pap tests for 20 years after treatment or until age 65, whichever is longer. If you have had your uterus and cervix removed (total hysterectomy), and you have not been diagnosed with cervical cancer or precancer (high grade cervical neoplasia), you do not need cervical cancer screening. CHOLESTEROL SCREENING Cholesterol screening should begin at: Age 45 for women with no known risk factors for coronary heart disease Age 20 for women with known risk factors for coronary heart disease Repeat cholesterol screening should take place: Every 5 years for women with normal cholesterol levels More often if changes occur in lifestyle (including weight gain and diet) More often if you have diabetes, heart disease, kidney problems, or certain other conditions DIABETES SCREENING You should be screened for diabetes starting at age 35 and then repeated every 3 years if you have no risk factors for diabetes. Screening may need to start earlier and be repeated more often if you have other risk factors for diabetes, such as: You have a first degree relative with diabetes. You are overweight or have obesity. You have high blood pressure, prediabetes, or a history of heart disease. Screening for diabetes should be done if you are planning to become and you are overweight and have other risk factors such as high blood pressure. DENTAL EXAM Go to the dentist once or twice every year for an exam and cleaning. Your dentist will evaluate if you need more frequent visits. EYE EXAM Have an eye exam every 5 to 10 years before age 40. If you have vision problems, have an eye exam every 2 years or more often if recommended by your provider. You should have an eye exam that includes an examination of your retina (back of your eye) at least every year if you have diabetes. IMMUNIZATIONS Commonly needed vaccines include: Flu shot: get one every year. COVID-19 vaccine: ask your provider what is best for you. Tetanus-diphtheria and acellular pertussis (Tdap) vaccine: have one at or after age 19 as one of your tetanus-diphtheria vaccines if you did not receive it as a n adolescent. Tetanus-diphtheria: have a booster (or Tdap) every 10 years. Varicella vaccine: receive 2 doses if you never had chickenpox or the varicella vaccine. Hepatitis B vaccine: receive 2, 3, or 4 doses, depending on your exact circumstances. Measles, mumps, and rubella (MMR) vaccine: receive 1 to 2 doses if you are not already immune to MMR. Your provider can tell you if you are immune. Ask your provider about the human papillomavirus (HPV) vaccine if: You have not received the HPV vaccine in the past You have not completed the full vaccine series (you should catch up on this shot) Ask your provider if you should receive other immunizations if you have certain health problems that increase your risk for some diseases such as pneumonia. INFECTIOUS DISEASE SCREENING Women who are sexually active should be screened for chlamydia and gonorrhea up until age 25. Women 25 years and older should be screened for chlamydia and gonorrhea if at high risk. Screening for hepatitis C: All adults ages 18 to 79 should get a one-time test for hepatitis C. people should be screened at every . Screening for human immunodeficiency virus (HIV): All people ages 15 to 65 should get a one-time test for HIV. Depending on your lifestyle and medical history, you may also need to be screened for infections such as syphilis and HIV, as well as other infections. PHYSICAL EXAM All adults should visit their provider from time to time, even if they are healthy. The purpose of these visits is to: Screen for disease Assess your risk of future medical problems Encourage a healthy lifestyle Update your vaccinations and other preventive care services Maintain a relationship with a provider in case of an illness Your height, weight, and BMI should be checked at every exam. During your exam, your provider may ask you about: Depression and anxiety Diet and exercise Alcohol and tobacco use Safety issues, such as using seat belts, smoke detectors, and intimate partner violence Your medicines and risk for interactions SKIN SELF-EXAM Your provider may check your skin for signs of skin cancer, especially if you're at high risk, such as if you: Have had skin cancer before Have close relatives with skin cancer Have a weakened immune system OTHER SCREENING Talk with your provider about colon cancer screening if you have a strong family history of colon cancer or polyps, or if you have had inflammatory bowel disease or polyps yourself. Routine bone density screening of women under 40 is not recommended.
[2025-01-03 08:12] VITALS: BP 112/64; PULSE 90; RESP 14; O2SAT 97; BMI 32.7
== END 2025-01-03 08:47 | disposition home or self-care (01) ==
LOC: HO.HMCFM 08:03
PROVIDERS: PCP Nurse Practitioner Family; Visit Provider Nurse Practitioner Family
DX: Z00.00 Encounter for general adult medical examination without abnormal findings (principal); E66.9 Obesity, unspecified; Z68.32 Body mass index [BMI] 32.0-32.9, adult; J45.20 Mild intermittent asthma, uncomplicated; O99.345 Other mental disorders complicating the puerperium; F41.8 Other specified anxiety disorders; H53.8 Other visual disturbances; Z91.09 Other allergy status, other than to drugs and biological substances

== ENCOUNTER → 2025-01-03 08:03 | Outpatient (BNVA) | payer BC, SELFPAY | PROVIDERS: PCP Nurse Practitioner Family; Visit Provider Nurse Practitioner Family | DX: Z00.00 Encounter for general adult medical examination without abnormal findings (principal); J45.20 Mild intermittent asthma, uncomplicated; Z91.09 Other allergy status, other than to drugs and biological substances; F41.8 Other specified anxiety disorders; E66.9 Obesity, unspecified; Z83.2 Family history of diseases of the blood and blood-forming organs and certain disorders involving the immune mechanism; Z71.3 Dietary counseling and surveillance | CPT/HCPCS: 96127; 96160 ==

== ENCOUNTER 2025-02-20 10:16 | Outpatient (AMB) | payer BC, SELFPAY ==
--- NOTE | 2025-02-20 10:25 | A.OFFPC_ITS ---
Intake Visit Reasons: FMLA Allergies amoxicillin Allergy (Severe, Verified 02/20/25 10:23) Hives Medication List - Last Reconciled 02/20/25 by DOMINIQUE VelázquezP- albuterol sulfate 90 mcg/actuation (Ventolin HFA) 2 puffs inhalation Q6H PRN ashcamrondha extract 600 mg PO DAILY COVID-19 antigen test (COVID-19 At-Home Test kit) As directed ejoieysmkvr-xvfbopuam-idcnibut 100-62.5-25 mcg (Trelegy Ellipta) 1 inh inhalation DAILY Lactobac no.51-Bifidobact no.4 50 billion cell (up4 Probiotics Ultra) caps PO tirzepatide (weight loss) (Zepbound) 5 mg subcut QWEEK Tobacco use date assessed: 01/03/25 Dental Screening Dental Screen Date: 01/03/25 HPI HPI Comments History of Present Illness Details 39 y/o F with mild intermittent asthma, anxiety, obesity, environmental allergies History of Present Illness - The patient is a 39-year-old female pr esenting with a request for Family Medical Leave Act (FMLA) certification for intermittent leave due to asthma exacerbation. - Experiences asthma exacerbations once per month lasting two days. - Requests FMLA leave certification [facility] 02/11 for six months. - Seeks medical follow-up for asthma man agement. Review of Systems - Respiratory: Reports episodes of asthm a exacerbation. - General: Denies disability claim neces sity, except need for intermittent FMLA leave. - Appointments: Need for follow-up visit s for asthma management. Assessment and Plan 1. Asthma - Approved FMLA for asthma, two-day abse nce per episode. and 1 appt/tx 1 day/month - Covers six months from 02/11. - No disability claims - Ongoing visits included in certificati on. - Form placed at front office director for her to p ick up; copy scanned into chart. - FU as scheduled Telehealth Attestation The encounter was conducted via phone. Documentation reflects the information provided during the telehealth visit accurately and thoroughly. The patient has been explained that this is an interactive (audio/video) telehealth encounter and what that consists of. The patient understands and wishes to proceed. [employer] platform was used. Total time spent caring for the patient today was 21 minutes. This includes time spent before the visit reviewing the chart, time spent during the visit, and time spent after the visit on documentation, reviewing laboratory results, diagnostic imaging, medications, performing a medically necessary evaluation, counseling on diagnoses, care coordination, ordering appropriate tests, ordering appropriate medications, review of tests performed by other providers, reporting test results with the patient, communication with other healthcare providers. 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 Facundo Bazzi, Malu Byers, Golden Vásquez and colleagues, with an educational cristina from [employer]. ACT Questionnaire In the past 4 weeks, how much of the time did your asthma keep you from getting as much done at work, school or at home?: None of the time During the past 4 weeks, how often have you had shortness of breath?: Not at all During the past 4 weeks, how often did your asthma symptoms wake you up at night or earlier than usual in the morning?: Not at all During the past 4 weeks, how often have you had to use your rescue inhaler or nebulizer medication?: Not at all How would you rate your asthma control during the past 4 weeks?: Completely controlled ACT Interpretation: Negative Score: 25 Physical exam (Primary Care) Tobacco/Smoking Status: Tobacco use Status Tobacco use date assessed 01/03/25 01/03/25 08:08 Patient Tobacco Use Status Never used Tobacco 01/03/25 08:30 e-Cigarette/Vaping Use Never Used 01/03/25 08:30 Thrive Assessment: Date of Thrive Assessment Date Thrive assessed 01/03/25 01/03/25 08:15 Telehealth Telehealth [facility]health [facility]: [facility] Location of provider rendering services: practice address Location of patient: address on file Patient Identification confirmed using: Name, : Yes Telehealth method: voice only Patient verbally consented to treatment: Yes Patient verbally consented to billing insurance company: Yes Patient informed of any privacy concerns related to visit: Yes Minutes spent on Phone/Video with Pt.: 9 Coding Level of Care Code Tele Est Pt Level 3 (13293) Complex EM visit Add On G2211 Diagnoses Mild intermittent asthma in adult without complication J45.20 Encounters for administrative purpose Z02.9 Additional Codes Asthma Control Questionnaire - ACT Interpretation: Negative ([id number]) Assessment & Plan Assessment & Plan (1) Mild intermittent asthma in adult without complication: Comment: controlled w/ maintenance inhalers Code(s): J45.20 - Mild intermittent asthma, uncomplicated Category: Medical (2) Encounters for administrative purpose: Code(s): Z02.9 - Encounter for administrative examinations, unspecified Plan: FMLA COMPLETED 02/11/25 + 6 MO 1 EPISODE PER MONTH LASTING 2 DAYS TREATMENT 1 DAY/MO Plan .
--- OUTSIDE RECORDS SUMMARY | 2025-02-20 11:00 | XMS_ITS | Clinical Summary ---
Author Organization [facility] Address [address] [place] [address] Phone Care Team Providers Care Rd Manager Name Role Phone Physician, No Pcp Primary Care Provider Unavaila ble Allergies No known active allergies Encounters Date Type Department Care Team Description 02/18/2025 2:39 PM EDT Hospital Encounter [facility] Pulmonary [address] [place] [address] Severe persistent asthma with (acute) exacerbation (CMS/HCC V28) from Last 3 Months Social History Tobacco Use Types Packs/Day Years Used Date Smoking Tobacco: Never Assessed Comments Unknown Sex and Gender Information Value Date Recorded Sex Assigned at Not on file Legal Sex Female 10:54 AM EDT Gender Identity Not on file Sexual Orientation Not on file Plan of Treatment Health Maintenance Due Date Last Done Comments DTaP,Tdap,and Td Vaccines (1 - Tdap) 2004 Hepatitis B Vaccines (1 of 3 - 19+ 3-dose series) 2004 Pneumococcal Vaccine: Pediat rics (0 to 5 Years) and At-Risk Patients (6 to 49 Years) (1 of 2 - PCV) 2004 Cervical Cancer Screening: P ap Smear 2006 COVID-19 Vaccine ( - 2023-2 5 season) 2024 Depression Screening 07/31/2024 HIV Screening 02/07/2025 Hepatitis C Screening 02/07/2025 Social Influencers of Health Screening 02/07/2025 Influenza Vaccine (#1) 2025 HIB Vaccines Aged Out No longer eligi ble based on patient's age to complete this topic HPV Vaccines Aged Out No longer eligi ble based on patient's age to complete this topic Hepatitis A Vaccines Aged Out No long er eligible based on patient's age to complete this topic IPV Vaccines Aged Out No longer eligi ble based on patient's age to complete this topic MMR Vaccines Aged Out No longer eligi ble based on patient's age to complete this topic Meningococcal ACWY Vaccine Aged Out N o longer eligible based on patient's age to complete this topic Meningococcal B Vaccine Aged Out No l onger eligible based on patient's age to complete this topic RSV Immunization Patients Un maynor 20 months Aged Out No longer eligible b ased on patient's age to complete this topic Varicella Vaccines Aged Out No longer eligible based on patient's age to complete this topic Insurance [facility] Care Teams Rd Manager Relationship Specialty Start Date End Date Physician, Gisella Pcp PCP - General 02/18/25
== END 2025-02-20 10:36 | disposition home or self-care (01) ==
LOC: HO.HMCFM 10:16
PROVIDERS: PCP Nurse Practitioner Family; Visit Provider Nurse Practitioner Family
DX: J45.20 Mild intermittent asthma, uncomplicated (principal)

== ENCOUNTER → 2025-02-20 10:16 | Outpatient (BNVA) | payer BC, SELFPAY | PROVIDERS: PCP Nurse Practitioner Family; Visit Provider Nurse Practitioner Family | DX: Z02.9 Encounter for administrative examinations, unspecified (principal); J45.20 Mild intermittent asthma, uncomplicated | CPT/HCPCS: 96160; 98968 ==

== ENCOUNTER 2025-04-30 15:07 | Outpatient (AMB) | payer BC, SELFPAY ==
--- NOTE | 2025-04-30 15:40 | MHC.PC.OV ---
Intake Visit Reasons: additional documents and to discuss referral Allergies amoxicillin Allergy (Severe, Verified 02/20/25 10:23) Hives Medication List - Last Reconciled 04/30/25 by DOMINIQUE VelázquezP- albuterol sulfate 90 mcg/actuation (Ventolin HFA) 2 puffs inhalation Q6H PRN ashwagandha extract 600 mg PO DAILY COVID-19 antigen test (COVID-19 At-Home Test kit) As directed jvefqoyxafo-qihwbqcud-wrlsgmex 100-62.5-25 mcg (Trelegy Ellipta) 1 inh inhalation DAILY Lactobac no.51-Bifidobact no.4 50 billion cell (up4 Probiotics Ultra) caps PO tirzepatide (weight loss) (Zepbound) 5 mg subcut QWEEK Tobacco use date assessed: 01/03/25 Dental Screening Dental Screen Date: 01/03/25 HPI HPI Comments History of Present Illness Details 39 y/o F with mild intermittent asthma, anxiety, obesity, environmental allergies History of Present Illness - The patient is a 39-year-old female with a request for Family Medical Leave Act (FMLA) certification for intermittent leave due to asthma exacerbation. - Experiences asthma exacerbations once per month lasting two days. - Requests [place] certification starting 02/11 for six months. - Seeks medical follow-up for asthma management. - She states the [facility] has been sending me documents that have not been returned. She does not have any more info. I reviewed the chart and cannot find anything from the [facility]. Advised her to call them and see what they need from me and send it to me via the portal. As far as i can see her leave is active and UTD. Needs referral to ENT. Chronic sinus congestion; not allergies as she has had this tested/worked up w/o relief. Plan refer to ENT in [place]. If insurance not accepted will reflex to [place] office. Made aware of prolonged wait. Edu on use of portal for same day visits. Telehealth Attestation The encounter was conducted via phone. Documentation reflects the information provided during the telehealth visit accurately and thoroughly. The patient has been explained that this is an interactive (audio/video) telehealth encounter and what that consists of. The patient understands and wishes to proceed. [employer] platform was used. Total time spent caring for the patient today was 21 minutes. This includes time spent before the visit reviewing the chart, time spent during the visit, and time spent after the visit on documentation, reviewing laboratory results, diagnostic imaging, medications, performing a medically necessary evaluation, counseling on diagnoses, care coordination, ordering appropriate tests, ordering appropriate medications, review of tests performed by other providers, reporting test results with the patient, communication with other healthcare providers. [facility] Medical History (Updated 04/30/25 @ 15:[address] [facility]) Asthma Family History (Updated 01/01/24 @ 15:43 by Effie Agee 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 Facundo Bazzi, Malu Byers, Golden Vásquez and colleagues, with an educational cristina from [employer]. Physical exam (Primary Care) Tobacco/Smoking Status: Tobacco use Status Tobacco use date assessed 01/03/25 04/30/25 15:42 Patient Tobacco Use Status Never used Tobacco 04/30/25 15:42 e-Cigarette/Vaping Use Never Used 04/30/25 15:42 Thrive Assessment: Date of Thrive Assessment Date Thrive assessed 01/03/25 04/30/25 15:42 Telehealth Telehealth Telehealth Platform: [facility] Location of provider rendering services: practice address Location of patient: address on file Patient Identification confirmed using: Name, : Yes Telehealth method: voice only Patient verbally consented to treatment: Yes Patient verbally consented to billing insurance company: Yes Patient informed of any privacy concerns related to visit: Yes Minutes spent on Phone/Video with Pt.: 13 Coding Level of Care Code Tele Est Pt Level 3 (68264) Complex EM visit Add On G2211 Diagnoses Encounters for administrative purposes Z02.9 Chronic sinusitis, unspecified location J32.9 Sinusitis location: unspecified location Post-nasal drip R09.82 Assessment & Plan Assessment & Plan (1) Encounters for administrative purposes: Code(s): Z02.9 - Encounter for administrative examinations, unspecified (2) Chronic sinusitis: Code(s): J32.9 - Chronic sinusitis, unspecified Category: Medical Qualifiers: Sinusitis location: unspecified location Qualified Code(s): J32.9 - Chronic sinusitis, unspecified (3) Post-nasal drip: Code(s): R09.82 - Postnasal drip Category: Medical Plan , Orders: Referrals Ear/Nose/Throat Referral J32.9 - Chronic sinusitis, unspecified, R09.82 - Postnasal drip
--- OUTSIDE RECORDS SUMMARY | 2025-04-30 16:08 | XMS_ITS | Clinical Summary ---
Author Organization [facility] Address [address] [place] [address] Phone Care Team Providers Care Director Manufacturing Engineering Name Role Phone Physician, No Pcp Primary Care Provider Unavaila ble Allergies No known active allergies Encounters Date Type Department Care Team Description 02/18/2025 2:39 PM EDT - 02/18/2025 11:59 PM EDT Hospital Encounter [facility] Pulmonary [address] [place] [address] Severe persistent asthma with (acute) exacerbation ([facility] V28) Discharge Disposition: Home or Self Care from Last 3 Months Social History Tobacco [...] Cervical Cancer Screening: P ap Smear 2006 Depression Screening 07/31/2024 HIV Screening 02/07/2025 Hepatitis C Screening 02/07/2025 Social Influencers of Health Screening 02/07/2025 COVID-19 Vaccine (1 - 2023-2 5 season) 2025 Influenza Vaccine (#1) 2025 RSV Immunization Adult Patie nts (1 - 1-dose 75+ series) 2060 HIB Vaccines Aged Out No longer eligi [...] on patient's age to complete this topic Procedures Procedure Name Priority Date/Time Associated Diagnosis Comments HC SPIROMETRY BRONCHODILATION RESPONSIVENESS PRE/POST BRONCHODILATOR ADMINISTRATION Routine 02/18/2025 3:23 PM EDT Severe persistent asthma with (acute) exacerbation (CMS/[facility] V28) from Last 3 Months Results * Pulmonary function testing: Carbon Monoxide Diffusing Capacity, Nitrogen Wash Out, Spirometry with Bronchodilator (02/18/2025 3:23 PM EDT) Narrative Woo Garg MD - 02/21/2025 3:48 PM EDT Table formatting from the original result was not included. Images from the original result were not included. [facility] Pulmonary Lab [address] [place] [id number] Pulmonary Functions Report Date of service: 02/18/25 Patient Name: Salvador Coats Date of : Age: 39 y.o. Gender: female Ordering Provider: Sammi Gonsalez MD Diagnosis listed on Order: Severe persistent asthma with (acute) exacerbation (CMS/[facility] V28) Reason for Exam: Order Questions Answers Reason for Exam: SEVERE PERSISTENT ASTHMA WITH ACUTE EXACERBATION Which PFTs would you like to perform? Carbon Monoxide Diffusing Capacity,Nitrogen Wash Out,Spirometry with Bronchodilator Pulmonary function test interpretation. Spirometry done today reveals FEV1 of 3.15 which is 102% of the predicted value, FVC is 3.80 which is 101% of the predicted value, FEV1 to FVC ratio is 100% of the predicted value, there is no bronchodilator response. Flow volume is consistent with normal pattern. Static lung volumes are within normal limits. Diffusion lung capacity is also within normal limits. This study is consistent with normal pulmonary mechanics, however a diagnosis of asthma is in question suggest methacholine challenge test clinical correlation is advised. Sammi Gonsalez MD PFT ORDERABLES Final Result from Last 3 Months Insurance [facility] ([facility]) Care Teams Director Manufacturing Engineering Relationship Specialty Start Date End Date Physician, No Pcp PCP - General 02/18/25
== END 2025-04-30 15:53 | disposition home or self-care (01) ==
LOC: HO.HMCFM 15:07
PROVIDERS: PCP Nurse Practitioner Family; Visit Provider Nurse Practitioner Family
DX: J32.9 Chronic sinusitis, unspecified (principal); R09.82 Postnasal drip

== ENCOUNTER 2025-06-12 08:59 | Outpatient (AMB) | payer BC, SELFPAY ==
--- NOTE | 2025-06-12 09:04 | A.OFFPC_ITS ---
Vital Signs 06/12/25 09:15 Height 5 ft 5 in Weight 203 lb BMI 33.8 BP 99/66 Blood Pressure Location Rt brachial Position Sitting Respiration 12 Pulse 70 Pulse Source Pulse Oximeter Temp 97.2 F Temp Source Oral Pulse Oximetry (%) 98 Oxygen Delivery Method Room Air Intake Visit Reasons: difficulty breathing/tight chest Intake Note: Patient c/o difficulty breathing since lastnight. 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: No Allergies amoxicillin Allergy (Severe, Verified 06/12/25 09:18) Hives Medication List - Last Reconciled 06/12/25 by Marce Rodriguez, [facility]- albuterol sulfate 90 mcg/actuation (Ventolin HFA) 2 puffs inhalation Q6H PRN ashwagandha extract 600 mg PO DAILY COVID-19 antigen test (COVID-19 At-Home Test kit) As directed ygtdvqttwae-cfqzcdxxp-fomcbxsd 100-62.5-25 mcg (Trelegy Ellipta) 1 inh inhalation DAILY Lactobac no.51-Bifidobact no.4 50 billion cell (up4 Probiotics Ultra) caps PO tirzepatide (weight loss) (Zepbound) 5 mg subcut QWEEK Tobacco use date assessed: 01/03/25 Dental Screening Dental Screen Date: 01/03/25 HPI HPI Comments History of Present Illness Details 39 y/o F with mild intermittent asthma, anxiety, obesity, environmental allergies No surgical hx. 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 [facility] Specialists: Optho in the past, wears corrective glasses, Dr Chaudhry [employer] - active Dr Blum in [facility] allergy for allergy shots Chief Complaint The patient is a 39-year-old female presenting with a cough that began last night. History The patient is a 39-year-old female presenting with a cough Acute Viral Illness: - The patient reports onset of symptoms last night, starting with a dry cough that has since become more productive. - She complains of chest tenderness and a sensation of being able to take only shallow breaths. - She denies fever, sore throat, or chil ls, but reports ear pain. - The patient recently returned from [facility] and believes the change in climate may have contributed to her symptoms. Mild Intermittent Asthma: - The patient has a history of mild inte rmittent asthma for nearly 20 years, for which she has used albuterol and Trelegy. - Due to her current , she has stopped using Trelegy and is only using her albuterol inhaler as needed, which she has done once or twice recently for her current symptoms with some relief. - She reports previous pulmonary functio n testing at an outside facility resulted in being told she does not have asthma, but she felt the follow-up was incomplete. - The patient also notes a history of ex periencing postnasal drip and co ngestion. : - The patient is currently 9 weeks pregn ant. - Her is being managed by Dr. Mccormack. - She is taking vitamins. - She does not typically get a flu shot but planned to discuss it with her sticker hand due to the . Past Medical History - Mild intermittent asthma for approxima telel 20 years - , currently in the first trim monse Review of Systems - Constitutional: Denies fever or chills . - Respiratory: Reports a cough which has become productive, chest tenderness, and a sensation of shallow breathing. - ENT: Reports ear pain and postnasal dr ip. Denies sore throat. Physical Exam General: Awake, alert. No apparent distress Eyes: Sclera and conjunctiva clear bilaterally Nose: Nares patent, turbinates within normal limits, no sinus tenderness with palpation bilaterally Ears: Tympanic membranes intact and clear bilaterally Throat: Moist mucosa membrane, pharynx within normal limits Cardiovascular: Regular rate and rhythm Respiratory: Clear to auscultation bilaterally, no wheezing noted, mild cough w/o distress noted Results - Prior pulmonary function testing at an outside facility reportedly did not show evidence of asthma. Medical Decision Making The patient is a 39-year-old female, 9 weeks , presenting with cough and dyspnea, on a background of mild intermittent asthma. Her physical exam is reassuring, notable for clear lungs without wheezing, though she does have a cough provoked by deep inspiration. The primary concern is managing her acute respiratory illness safely during the first trimester of . Given her , treatment options are limited; systemic steroids are being avoided. The illness is likely viral, consistent with circulating community pathogens such as parainfluenza, enterovirus, or rhinovirus, making a flu/COVID swab of limited utility as management would remain supportive. The plan focuses on supportive measures, including hydration, honey, saline nasal rinses, and pgju-zui-mmbcqui guaifenesin, which are safe in . Continued use of albuterol as needed is appropriate and safe. Patient was counseled on the importance of treating any potential fever promptly with Tylenol. Regarding her chronic respiratory symptoms and unclear asthma diagnosis after prior testing, a referral to pulmonology for a second opinion is warranted. This will help clarify her underlying condition and guide long-term management, especially considering her co-existing symptoms of postnasal drip. Plan 1. Acute Viral Illness - Recommended supportive care, including tfnu-yoi-kaauwxs Robitussin (guaifenesin), saline nasal rinses, increased water intake, and honey for cough. - Patient advised to use Tylenol 650 mg up to four times daily if a fever develops. - Advised against using combination coug h products containing dextromethorphan. - Instructed to return if breathing wors ens or she develops a high, persistent fever. - A work note was provided. 2. Mild Intermittent Asthma - The diagnosis of asthma will be mainta ined on her chart pending further evaluation. - Patient advised to continue using her albuterol inhaler as needed, which is sa fe during . - [facility] a [facility] and further evaluation. - A copy of her previous ENT referral wi ll be printed for her records. 3. , First Trimester - Patient advised to continue care with her sticker hand, Dr. Mccormack. - Medication safety was reviewed, confir patti albuterol, Tylenol, and guaifenesin are safe, while Trelegy and combination cough products should be avoided. - Will continue taking vitamins . 4. Preventative Care: Influenza Vaccinat ion - The patient has not received an influe nza vaccine this season but will discuss it with her sticker hand. Patient Instructions - It is safe to continue using your albu terol inhaler as needed for breathing difficulties during your . - Do not use your Trelegy inhaler. - For your cough, you can take over-the- counter Robitussin (make sure it is only guaifenesin), drink plenty of water, and use honey to soothe your throat. - Avoid cough and cold medicines that ar e mixed with other drugs, like dextromethorphan. If you are unsure, ask the pharmacist for a cough medicine that is safe for . - You can use saline nasal rinses to hel p clear out your nose. - If you get a fever, take two regular s trength Tylenol (650 mg total). You can do this up to four times per day. It is important to treat a fever during pregn cary. - Please seek medical care sooner if you r breathing gets worse or if you develop a high fever that does not go away. - A referral has been made to a lung spe cialist (lug loader). You can ask the staff at the supervisor front to help you schedule an appointment before you leave today. Consent Patient was informed and verbally consented to the use of an ambient scribe for clinic note documentation during this visit. Total time spent caring for the patient today was 30 minutes. This includes time spent before the visit reviewing the chart, time spent during the visit, and time spent after the visit on documentation, reviewing laboratory results, diagnostic imaging, medications, performing a medically necessary evaluation, counseling on diagnoses, care coordination, ordering appropriate tests, ordering appropriate medications, review of tests performed by other providers, reporting test results with the patient, communication with other healthcare providers. 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 Current occupational exposures/hazards: No Cognitive needs: No Hearing needs: No Vision needs: Yes Questionnaire Thrive Questionnaire Date Thrive assessed: 10/30/24 I am a: Patient What is your living situation today?: I have a steady place to live Within the past 12 months, did the food you bought not last and you didn't have the money to get more?: Never true Within the past 12 months, did you worry whether your food would run out before you got money to buy more?: Never true Do you have trouble paying for medicines?: No Do you have trouble getting transportation to medical appointments?: No Do you have trouble paying your heating and electricity bill?: No Do you have trouble taking care of your child, family member or friend?: No Do you have trouble with day-to-day activities such as bathing, preparing meals, shopping, managing finances, etc.?: No Are you currently unemployed and looking for a job?: No Are you interested in more education?: No Please select the resources that you would like help with: None Currently or been in a relationship where the following occur: No concerns reported THRIVE Score: 0 ZARI-7 AMB Questionnaire ZARI-7 Date ZARI - 7 assessed: 01/03/25 Source: Developed by Drs. Facundo Bazzi, Malu Byers, Golden Vásquez and colleagues, with an educational cristina from [employer]. Physical exam (Primary Care) Vital Signs: Last Vital Signs Temp 97.2 F 06/12/25 09:15 Pulse 70 06/12/25 09:15 Resp 12 06/12/25 09:15 BP 99/66 06/12/25 09:15 Pulse Ox 98 06/12/25 09:15 Oxygen Delivery Method Room Air 06/12/25 09:15 BMI result Body Mass Index 33.8 Tobacco/Smoking Status: Tobacco use Status Tobacco use date assessed 01/03/25 06/12/25 09:04 Patient Tobacco Use Status Never used Tobacco 06/12/25 09:04 e-Cigarette/Vaping Use Never Used 06/12/25 09:04 Thrive Assessment: Date of Thrive Assessment Date Thrive assessed 10/30/24 06/12/25 09:04 Currently or been in a relationship where the following occur: No concerns reported Coding Level of Care Code Est Pt Level 4 (09274) Complex EM visit Add On G2211 Diagnoses Viral URI with cough J06.9 Currently Z34.90 Mild intermittent asthma in adult without complication J45.20 Environmental allergies Z91.09 Assessment & Plan Assessment & Plan (1) Viral URI with cough: Code(s): J06.9 - Acute upper respiratory infection, unspecified (2) Currently : Code(s): Z34.90 - Encounter for supervision of normal , unspecified, unspecified trimester Category: Medical (3) Mild intermittent asthma in adult without complication: Comment: controlled w/ maintenance inhalers Code(s): J45.20 - Mild intermittent asthma, uncomplicated Category: Medical (4) Environmental allergies: Code(s): Z91.09 - Other allergy status, other than to drugs and biological substances Category: Medical Plan . Orders: Referrals Pulmonology Referral J45.20 - Mild intermittent asthma, uncomplicated, Z91.09 - Other allergy status, other than to drugs and biological substances
[2025-06-12 09:15] VITALS: BP 99/66; PULSE 70; RESP 12; TEMP 36.2; O2SAT 98; BMI 33.8
--- OUTSIDE RECORDS SUMMARY | 2025-06-12 09:44 | XMS_ITS | Clinical Summary ---
Author Organization [facility] Address [address] [place] [address] Phone Care Team Providers Care Rate And Cost Analyst Name Role Phone Physician, No Pcp Primary Care Provider Unavaila ble Allergies No known active allergies Social History Tobacco Use Types Packs/Day Years [...] Cervical Cancer Screening: P ap Smear 2006 HPV Vaccines (1 - 3-dose SCD M series) 2012 Depression Screening 07/31/2024 HIV Screening 02/07/2025 Hepatitis C Screening 02/07/2025 Social Influencers of Health Screening 02/07/2025 COVID-19 Vaccine (1 - 2024-2 6 season) 2025 Influenza Vaccine (#1) 2025 RSV [...] patient's age to complete this topic Insurance [facility] Care Teams Rate And Cost Analyst Relationship Specialty Start Date End Date Physician, No Pcp PCP - General 02/18/25
== END 2025-06-12 09:31 | disposition home or self-care (01) ==
LOC: HO.HMCFM 09:00
PROVIDERS: PCP Nurse Practitioner Family; Visit Provider Nurse Practitioner Family
DX: J06.9 Acute upper respiratory infection, unspecified (principal); Z34.90 Encounter for supervision of normal pregnancy, unspecified, unspecified trimester; J45.20 Mild intermittent asthma, uncomplicated; Z91.09 Other allergy status, other than to drugs and biological substances